=== PATIENT | male | born 1960 | race Caucasian/White ===

== ENCOUNTER 2021-05-30 17:22 | Inpatient (IN) ==
[2021-05-30 17:49] LABS: ABS Eosinophils 0.2 10^3/ul (0-0.6); ABS Lymphocytes 1.1 10^3/ul (1.0-4.8); ABS Neutrophils 6.8 10^3/ul (1.5-7.7); Eosinophil % 1.9 %; Hematocrit 44 % (42-52); Hemoglobin 15.3 g/dL (14.0-18.0); Lymphocyte % 12.3 %; Mean Corpuscular HGB Conc 35 g/dL (31-36); Mean Corpuscular Hemoglobin 35 pg (27-31); Mean Corpuscular Volume 101 fL (80-94); Mean Platelet Volume 8.5 fL (7.4-10.4); Nucleated Red Blood Cells % 0.1; Platelet Count 279 10^3/uL (150-450); Red Blood Count 4.39 10^6 /uL (4.18-5.48); Red Cell Distribution Width 13 % (10-15); White Blood Count 9.2 10^3/uL (3.5-10.8)
[2021-05-30 17:59] LABS: INR 1.12 (0.86-1.15)
[2021-05-30 18:09] LABS: ALT 12 U/L (7-52); AST 18 U/L (13-39); Albumin 3.9 g/dL (3.2-5.2); Albumin/Globulin Ratio 1.4 (1-3); Alkaline Phosphatase 65 U/L (35-149); Anion Gap 9 mmol/L (2-11); Blood Urea Nitrogen 20 mg/dL (6-24); CO2 Carbon Dioxide 21 mmol/L (22-32); Calcium 9.2 mg/dL (8.6-10.3); Chloride 110 mmol/L (101-111); Globulin 2.8 g/dL (2-4); Glucose 94 mg/dL (70-100); Potassium 4.2 mmol/L (3.5-5.0); Sodium 140 mmol/L (135-145); Total Protein 6.7 g/dL (6.4-8.9); eGFR CKD-EPI 57.3 (>60)
[2021-05-30 18:28] LABS: Troponin I 0.93 ng/mL (<0.03)
[2021-05-30] MEDS ORDERED: Ondansetron 4 mg VIAL 2 MG/ML 2 ml VIAL IV PRN (20:53)
[2021-05-30 21:01] LABS: Troponin I 1.03 ng/mL (<0.03)
[2021-05-30] MEDS ORDERED: Iodixanol (CONTRAST) 320 MG/ML 100 ML SDV IV ONE (21:19)
[2021-05-30 22:44] LABS: Magnesium 2.2 mg/dL (1.9-2.7)
[2021-05-30] MEDS ORDERED: Heparin DRIP 25,000 UNITS BAG 25,000 UNITS/500 ML BAG IV SCH (22:45)
[2021-05-30] MEDS ORDERED: Furosemide 20 mg/2 ml IV VIAL IV SLOW PU ONE (22:50)
[2021-05-30 23:00] LABS: TSH Ultra Thyroid Stim Horm 2.32 mcIU/mL (0.34-5.60)
[2021-05-30] MEDS ORDERED: Heparin 5000 UNITS/ML 1 mL VIAL IV SCH (23:00)
[2021-05-30] MEDS ORDERED: Enoxaparin 80 MG/0.8 ML SYR SUBCUT ONE (23:02)
[2021-05-30] MEDS ORDERED: Nitroglycerin 0.1 mg/hr PATCH (2.5 mg) TRANSDERM ONE (23:03)
[2021-05-30 23:38] LABS: Urine Appearance Cloudy; Urine Bilirubin Negative (Negative); Urine Blood Negative (Negative); Urine Color Amber; Urine Glucose Negative (Negative); Urine Ketones Negative (Negative); Urine Nitrite Negative (Negative); Urine Protein 1+(30 mg/dL) (Negative); Urine Specific Gravity 1.027 (1.002-1.030); Urine Urobilinogen Negative (Negative)
[2021-05-30 23:40] LABS: Urine Bacteria 1+ (Absent); Urine Red Blood Cell Trace(0-2/hpf) (Absent); Urine White Blood Cell Trace(0-5/hpf) (Absent)
[2021-05-30] MEDS ORDERED: Hydrocortisone 2.5% CREAM(NF) 30 GM TUBE TOPICAL SCH (23:45)
[2021-05-30 23:53] LABS: Urine Creatinine Concentration 284.28 mg/dL
[2021-05-31 00:12] LABS: Troponin I 0.99 ng/mL (<0.03)
[2021-05-31] MEDS ORDERED: Chlorhexidine MOUTHWASH 0.12% 15 ML UDC SWISH SPIT ONE (01:11)
[2021-05-31] MEDS: Chlorhexidine MOUTHWASH 0.12% 15 ML UDC SWISH SPIT SCH ×5 (01:36→20:15)
[2021-05-31 03:44] LABS: PCO2 Arterial 31 mmHg (35-45); PO2 Arterial 99 mmHg (80-100)
[2021-05-31 06:14] LABS: ABS Basophils 0.1 10^3/ul (0-0.2); ABS Eosinophils 0.1 10^3/ul (0-0.6); ABS Lymphocytes 0.9 10^3/ul (1.0-4.8); ABS Monocytes 0.8 10^3/ul (0-0.8); ABS Neutrophils 6.9 10^3/ul (1.5-7.7); Eosinophil % 1.6 %; Hematocrit 45 % (42-52); Hemoglobin 15.5 g/dL (14.0-18.0); Mean Corpuscular HGB Conc 34 g/dL (31-36); Mean Corpuscular Hemoglobin 35 pg (27-31); Mean Corpuscular Volume 103 fL (80-94); Mean Platelet Volume 9.2 fL (7.4-10.4); Nucleated Red Blood Cells % 0.1; Platelet Count 285 10^3/uL (150-450); Red Cell Distribution Width 13 % (10-15); White Blood Count 8.8 10^3/uL (3.5-10.8)
[2021-05-31 06:35] LABS: Calcium 8.8 mg/dL (8.6-10.3); HDL Cholesterol 34.3 mg/dL; Potassium 4.6 mmol/L (3.5-5.0); eGFR CKD-EPI 43.5 (>60)
[2021-05-31] MEDS ORDERED: Furosemide 20 mg/2 ml IV VIAL IV SLOW PU ONE (09:00)
[2021-05-31] MEDS ORDERED: Perflutren Lipid Microsphere 3 ML VIAL ONE (09:55)
[2021-05-31] MEDS ORDERED: Enoxaparin 80 MG/0.8 ML SYR SUBCUT ONE (16:30)
[2021-05-31] MEDS ORDERED: Vancomycin 1,000 MG in NS 0.9% 250 ml 250 ML IVPB ONE (18:43)
[2021-05-31] MEDS ORDERED: Vancomycin per Pharmacy 1 EA NOTE FOLLOW UP SCH (19:00)
[2021-05-31] MEDS ORDERED: Vancomycin 1,500 MG in NS 0.9% 250 ml 250 ML IVPB ONE (19:00)
[2021-06-01 06:48] LABS: ABS Basophils 0.1 10^3/ul (0-0.2); ABS Lymphocytes 0.9 10^3/ul (1.0-4.8); ABS Monocytes 1.1 10^3/ul (0-0.8); ABS Neutrophils 10.1 10^3/ul (1.5-7.7); Eosinophil % 0.1 %; Hematocrit 45 % (42-52); Lymphocyte % 7.1 %; Mean Corpuscular HGB Conc 34 g/dL (31-36); Mean Corpuscular Hemoglobin 35 pg (27-31); Mean Corpuscular Volume 104 fL (80-94); Mean Platelet Volume 9.3 fL (7.4-10.4); Platelet Count 269 10^3/uL (150-450); Red Cell Distribution Width 13 % (10-15); White Blood Count 12.2 10^3/uL (3.5-10.8)
[2021-06-01 08:44] VITALS: BP 105/81
[2021-06-01] MEDS ORDERED: Vancomycin 1,250 MG in NS 0.9% 250 ml 250 ML IVPB SCH (20:00)
[2021-06-03] MEDS ORDERED: Vancomycin Trough Check NOTE FOLLOW UP ONE (19:30)
== END 2021-06-01 07:55 | disposition short-term general hospital (02) | DRG 200 ==
LOC: ED 17:22 → EDHOLD 17:22 → SUATTDRO 22:18 → OBSVTOIN 22:18 → MEDTELE 05-31 11:23
PROVIDERS: ADMIT Internal Medicine; ATTEND Hospitalist